=== PATIENT | female | born 1995 | race American Indian/Alaskan Native ===

== ENCOUNTER 2019-06-21 14:44 | Emergency (ER) | payer MEDICAID ==
[2019-06-21 14:59] VITALS: BP 123/78
--- NOTE | 2019-06-21 15:08 | Emergency Department Report ---
ED Dysuria HPI - HPI Chief Complaint: Urogenital-Female Stated Complaint: UTI Time Seen by Provider: 06/21/19 15:02 Location of Discomfort: Urethra (dysuria) Severity: Mild Symptoms: Dysuria: Yes, Frequency: No, Suprapubic Pain: No, Flank Pain: No, Fever: No, Hematuria: No, Abdominal Pain: No, Previous UTI's: No Other History: 23 yo AA female, gravid, comes to er with dysuria and painful vaginal bump. 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 Had appnt today with obgyn but because she was running late they would not see here. . LMP 02/22. no abnormal vag dc. no back pain. no abd pain. no fever or chills. ambulatory and non ill appearing on exam ED Review of Systems ROS: Stated complaint: UTI Other details as noted in HPI Comment: All other systems reviewed and negative ED Past Medical Hx - Past Medical History Previous Medical History?: No - Surgical History Past Surgical History?: Yes Additional Surgical History: left wrist and elbow surgery - Family History Family history: no significant - Social History Smoking Status: Never Smoker Substance Use Type: None - Medications Home Medications: Home Medications Medication Instructions Recorded Confirmed Last Taken Type Nitrofurantoin Frio/M-Cryst 100 mg PO BID #10 capsule 06/21/19 Unknown Rx [Macrobid CAP] Dysuria Exam - Exam General: Vital signs noted. No distress. Alert and acting appropriately. Exam: Yes Moist Mucous Membranes, No CVA Tenderness, No Abdominal Tenderness, No Rigidity or Guarding Exam: vaginal lesion- appears ulcerative without drainage on right labia minora. abd snt. no cva tenderness ED Course Vital Signs 06/21/19 14:54 Temperature 98.9 F Pulse Rate 104 H Respiratory 18 Rate Blood Pressure 123/78 O2 Sat by Pulse 99 Oximetry ED Medical Decision Making - Medical Decision Making Labs 06/21/19 15:00 Urine Color Yellow Urine Turbidity Cloudy Urine pH 5.0 Ur Specific [place] 1.016 Urine Protein <15 mg/dl Urine Glucose (UA) Neg Urine Ketones 80 Urine Blood Neg Urine Nitrite Neg Urine Bilirubin Neg Urine Urobilinogen 2.0 Ur Leukocyte Esterase Lg Urine WBC (Auto) 38.0 H Urine RBC (Auto) 7.0 U Epithel Cells (Auto) 10.0 Urine Bacteria (Auto) 2+ Urine Mucus 1+ Vital Signs 06/21/19 14:54 Temperature 98.9 F Pulse Rate 104 H Respiratory 18 Rate Blood Pressure 123/78 O2 Sat by Pulse 99 Oximetry non ill appearing no fever or chills taking po no abd or back pain no abnormal vag dc ua noted rocephin IM given Will need to see obgyn on Tuesday as scheduled for HSV testing. She verbalizes understanding - Differential Diagnosis ro uti Critical care attestation.: If time is entered above; I have spent that time in minutes in the direct care of this critically ill patient, excluding procedure time. ED Disposition Clinical Impression: , UTI (urinary tract infection), Vaginal sore Disposition: DC TO HOME OR SELFCARE Is pt being admited?: No Does the pt Need Aspirin: No Condition: Stable Additional Instructions: follow up with obgyn on Tuesday as scheduled tylenol for pain safe sex daily over the counter multivitamin med as ordered today Prescriptions: Nitrofurantoin Frio/M-Cryst [Macrobid CAP] 100 mg PO BID #10 capsule Referrals: GARFIELD TINAJERO MD [Staff Physician] - 3-5 Days MARK SAVAGE MD [Staff Physician] - 3-5 Days Time of Disposition: 15:34
[2019-06-21 15:39] LABS: Bacteria,Urine 2+ /HPF (Negative); Bilirubin,Urine NEG (Negative); Blood,Urine NEG (Negative); Color,Urine Yellow (Yellow); Mucus,Urine 1+ /HPF; Protein,Urine <15 mg/dL mg/dL (Negative)
[2019-06-21] MEDS ORDERED: cefTRIAXone/NS 1 GM/50 ML 1 GM/50 ML BAG IV ONE (15:46)
[2019-06-21] MEDS ORDERED: LIDOCAINE-MPF (1%) 10 MG/1 ML VIAL 5 ML INFILTRATI ONE (15:58)
[2019-06-21] MEDS ORDERED: LIDOCAINE-MPF (1%) 10 MG/1 ML VIAL 5 ML ONE (16:00)
== END 2019-06-21 16:16 | disposition home or self-care (01) ==
LOC: ED 14:44
DX: N39.0 Urinary tract infection, site not specified (principal); L98.8 Other specified disorders of the skin and subcutaneous tissue; O26.891 Other specified pregnancy related conditions, first trimester; Z88.2 Allergy status to sulfonamides
CPT/HCPCS: 81001; 87086; 96372; 99283; J0696

== ENCOUNTER 2019-07-12 16:49 | Emergency (ER) | payer MEDICAID ==
[2019-07-12 17:10] VITALS: BP 111/67
[2019-07-12 17:50] LABS: Bilirubin,Urine NEG (Negative); Blood,Urine NEG (Negative); Color,Urine Yellow (Yellow); Mucus,Urine FEW /HPF; Protein,Urine <15 mg/dL mg/dL (Negative); Urobilinogen,Urine < 2.0 mg/dL (<2.0)
--- NOTE | 2019-07-12 18:26 | Emergency Department Report ---
ED Dysuria HPI - HPI Chief Complaint: Urogenital-Female Stated Complaint: BLADDER INFECTION Time Seen by Provider: 07/12/19 17:22 Location of Discomfort: Suprapubic Severity: Mild Symptoms: Dysuria: Yes, Frequency: Yes, Suprapubic Pain: Yes, Flank Pain: No, Fever: No, Hematuria: No, Abdominal Pain: No, Previous UTI's: Yes Other History: 23 yo comes to er with dysuria. no fever or chills. no back pain. no abd pain. no vag bleed or dc. saw ob 2 days ago and cultures pending ED Review of Systems ROS: Stated complaint: BLADDER INFECTION Other details as noted in HPI Comment: All other systems reviewed and negative ED Past Medical Hx - Past Medical History Previous Medical History?: No - Surgical History Past Surgical History?: Yes Additional Surgical History: left wrist and elbow surgery - Family History Family history: no significant - Social History Smoking Status: Never Smoker Substance Use Type: None - Medications Home Medications: Home Medications Medication Instructions Recorded Confirmed Last Taken Type Amoxicillin [Trimox CAP] 500 mg PO BID #20 capsule 07/12/19 Unknown Rx Dysuria Exam - Exam General: Vital signs noted. No distress. Alert and acting appropriately. Exam: No Moist Mucous Membranes, No CVA Tenderness, No Abdominal Tenderness, No Rigidity or Guarding Labs: Lab Results 07/12/19 Range/Units 17:27 Urine Color Yellow (Yellow) Urine Turbidity Clear (Clear) Urine pH 6.0 (5.0-7.0) Ur Specific [place] 1.015 (1.003-1.030) Urine Protein <15 mg/dl (Negative) mg/dL Urine Glucose (UA) Neg (Negative) mg/dL Urine Ketones Neg (Negative) mg/dL Urine Blood Neg (Negative) Urine Nitrite Neg (Negative) Urine Bilirubin Neg (Negative) Urine Urobilinogen < 2.0 (<2.0) mg/dL Ur Leukocyte Esterase Neg (Negative) Urine WBC (Auto) 1.0 (0.0-6.0) /HPF Urine RBC (Auto) 1.0 (0.0-6.0) /HPF U Epithel Cells (Auto) 2.0 (0-13.0) /HPF Urine Mucus Few /HPF ED Course Vital Signs 07/12/19 17:06 Temperature 98.5 F Pulse Rate 105 H Respiratory 18 Rate Blood Pressure 111/67 O2 Sat by Pulse 98 Oximetry ED Medical Decision Making - Medical Decision Making Lab Results 07/12/19 Range/Units 17:27 Urine Color Yellow (Yellow) Urine Turbidity Clear (Clear) Urine pH 6.0 (5.0-7.0) Ur Specific [place] 1.015 (1.003-1.030) Urine Protein <15 mg/dl (Negative) mg/dL Urine Glucose (UA) Neg (Negative) mg/dL Urine Ketones Neg (Negative) mg/dL Urine Blood Neg (Negative) Urine Nitrite Neg (Negative) Urine Bilirubin Neg (Negative) Urine Urobilinogen < 2.0 (<2.0) mg/dL Ur Leukocyte Esterase Neg (Negative) Urine WBC (Auto) 1.0 (0.0-6.0) /HPF Urine RBC (Auto) 1.0 (0.0-6.0) /HPF U Epithel Cells (Auto) 2.0 (0-13.0) /HPF Urine Mucus Few /HPF ua noted recent macrobid x 5 days cultures sent at obgyn 2 days ago classic uti s/s no fever no chills no back pain no abd pain no vag bleed or dc not concerned for sti just finished macrobid allergy to bactrum will use amox-- pt instructed to have obgyn follow culture FHT 150 dc home with rx and ob follow up Vital Signs 07/12/19 17:06 Temperature 98.5 F Pulse Rate 105 H Respiratory 18 Rate Blood Pressure 111/67 O2 Sat by Pulse 98 Oximetry - Differential Diagnosis ro uti Critical care attestation.: If time is entered above; I have spent that time in minutes in the direct care of this critically ill patient, excluding procedure time. ED Disposition Clinical Impression: Dysuria Disposition: DC-01 TO HOME OR SELFCARE Is pt being admited?: No Does the pt Need Aspirin: No Condition: Stable Instructions: Urinary Tract Infection in Women (ED) Prescriptions: Amoxicillin [Trimox CAP] 500 mg PO BID #20 capsule Referrals: GARFIELD TINAJERO MD [Staff Physician] - 3-5 Days Time of Disposition: 18:26
== END 2019-07-12 18:40 | disposition home or self-care (01) ==
LOC: ED 16:49
DX: R30.0 Dysuria (principal); Z98.890 Other specified postprocedural states; Z79.899 Other long term (current) drug therapy; Z88.2 Allergy status to sulfonamides
CPT/HCPCS: 81001; 87086

== ENCOUNTER 2019-10-27 05:26 | Inpatient (IN) | payer MEDICAID ==
[2019-10-27] MEDS ORDERED: MAGNESIUM SULFATE 40GM/1000ML 40 GM/1,000 ML BAG IV ONE (05:40)
[2019-10-27] MEDS ORDERED: LACTATED RINGERS 1,000 ML ONE ×2 (05:40→07:34)
[2019-10-27] MEDS ORDERED: MAGNESIUM SULFATE 4 GM/100 ML BAG IV ONE ×3 (05:41→06:00)
[2019-10-27] MEDS ORDERED: CLINDAMYCIN 600 MG/50 mL 600 MG/50 ML BAG IV ONE (05:43)
[2019-10-27] MEDS ORDERED: BETAMET ACET/BETAMET NA PH 6 MG/ML INJ 5 ML MDV IM ONE (05:45)
[2019-10-27] MEDS ORDERED: LACTATED RINGERS 1,000 ML IV ONE (05:55)
[2019-10-27] MEDS ORDERED: BETAMET ACET/BETAMET NA PH 6 MG/ML INJ 5 ML MDV IM SCH (06:00)
[2019-10-27] MEDS ORDERED: MAGNESIUM SULFATE 40GM/1000ML 40 GM/1,000 ML BAG IV SCH (06:00)
[2019-10-27] MEDS ORDERED: CLINDAMYCIN 600 MG/50 mL 600 MG/50 ML BAG IV SCH (06:00)
[2019-10-27] MEDS ORDERED: MINERAL OIL 30 ML ORAL LIQD PO PRN (06:15)
[2019-10-27] MEDS ORDERED: TERBUTALINE 1 MG/1 ML INJ IVP PRN (06:15)
[2019-10-27] MEDS ORDERED: LIDOCAINE (2%) 20 MG/1 ML VIAL 20 ML MDV INFILTRATI ONE (06:15)
[2019-10-27] MEDS ORDERED: TERBUTALINE 1 MG/1 ML INJ SUB-Q PRN (06:15)
[2019-10-27] MEDS ORDERED: ePHEDrine SULFATE 50 MG/1 ML INJ IV PRN (06:15)
--- NOTE | 2019-10-27 06:20 | History and Physical Report ---
History of Present Illness Date of examination: 10/27/19 Date of admission: 10/27/19 05:41 Chief complaint: labor History of present illness: pt reports care w/ Dr. Lancaster at [facility] denies medical hx reports surgical hx left wrist and elbow hx HSV - on valtrex 2015 - 30wks, vaginal delivery, labor Pt seeing MFM during d/t hx , reports last visit 1 week ago pt was taking 17OHP until 30 weeks, then she stopped because " I was tired of getting them" Cerclage removed last week per patient, because she continued to have ctx and felt a "pulling sensation" Past History Past Medical History: no pertinent history Past Surgical History: other (ortho surgery) MANAGER HEART FAILURE History: herpes. denies: cancer, chlamydia, gonorrhea, hepatitis B, hepati tis C, HIV, syphilis, trichomonas Social history: no significant social history - Obstetrical History Expected Date of Delivery: 12/17/19 Actual Gestation: 32 Week(s) 5 Day(s) : 2 Para: 1 Hx # Term Pregnancies: 0 Number of Pregnancies: 1 Spontaneous Abortions: 0 Induced : 0 Number of Living Children: 1 Medications and Allergies Allergies Allergy/AdvReac Type Severity Reaction Status Date / Time Sulfa (Sulfonamide Allergy Rash Verified 06/21/19 14:54 Antibiotics) Home Medications Medication Instructions Recorded Confirmed Last Taken Type Amoxicillin [Trimox CAP] 500 mg PO BID #20 capsule 07/12/19 Unknown Rx Active Meds: Active Medications Betamethasone Acet/Betameth SodPhos (Celestone Soluspan) 12 mg IM Q24H ABHIJEET Stop: 10/28/19 06:01 Last Admin: 10/27/19 05:46 Dose: 12 mg Documented by: Lactated Ringer's (Lactated Ringers) 1,000 mls @ 999 mls/hr IV BOLUS ONE Stop: 10/27/19 06:55 Magnesium Sulfate (Magnesium Sulfate 40gm/1000ml) 40 gm in 1,000 mls @ 50 mls/hr IV DIRECT ABHIJEET Magnesium Sulfate (Magnesium Sulfate 4gm/100ml) 4 gm in 100 mls @ 300 mls/hr IV ONCE ONE Stop: 10/27/19 06:19 Review of Systems All systems: negative - Vital Signs Vital signs: Vital Signs Pulse Pulse Ox 105 H 100 10/27/19 05:47 10/27/19 05:47 Temp Pulse Resp BP Pulse Ox 120 H 109/53 99 10/27/19 06:12 10/27/19 06:12 10/27/19 06:12 - Physical Exam Breasts: Positive: normal Cardiovascular: Regular rate Lungs: Positive: Clear to auscultation, Normal air movement Abdomen: Positive: normal appearance, soft Genitourinary (Female): Positive: normal external genitalia (no signs of HSV lesions), normal perenium Vulva: both: normal Vagina: Positive: normal moisture Extremities: Positive: normal Deep Tendon Reflex Grade: Normal +2 - Obstetrical FHR: auscultation normal Uterine Contraction Monitor Mode: External Cervical Dilatation: 7 (Breech presentation by u/s) Cervical Effacement Percentage: 90 station: -1 Uterine Contraction Frequency (min): 3 Uterine Contraction Duration: 60 Uterine Contraction Pattern: Regular Uterine Tone Measurement Phase: Contraction Uterine Contraction Intensity: Moderate Results All other labs normal. Assessment and Plan 24y/o @ 32+5wks, labor, 7cms upon arrival. unsure of presentation; breech confirmed by u/s. per patient, cerclage removed last week d/t patient feeling pulling sensation, pt stopped taking 17OHP injections [address] Tuttle made aware, pre-op orders in EMR. Patient being prepped for surgery. pt and s/o made aware, surgery consents signed. - Patient Problems (1) 32 weeks gestation of Current Visit: Yes Status: Acute Plan to address problem: steroids (2) labor in third trimester Current Visit: Yes Status: Acute Qualifiers: Fetus number: single or unspecified fetus (3) GBS screening not performed Current Visit: Yes Status: Acute Plan to address problem: cleocin q8hrs until delivery (4) Malpresentation of fetus Current Visit: Yes Status: Acute
[2019-10-27] MEDS ORDERED: TERBUTALINE 1 MG/1 ML INJ ONE (06:27)
[2019-10-27] MEDS ORDERED: EMLA CREAM 5 GM TP PRN (06:29)
[2019-10-27] MEDS ORDERED: METOCLOPRAMIDE 10 MG/2 ML INJ IV ONE (06:29)
[2019-10-27] MEDS ORDERED: FAMOTIDINE 20 MG/2 ML INJ IV ONE (06:29)
[2019-10-27] MEDS ORDERED: BICITRA ORAL LIQD 30ML PO ONE (06:29)
[2019-10-27] MEDS ORDERED: BUPIVACAINE-EPINEPHRINE/PF 0.25%-1:200,000 (30 ML) VIAL INFILTRATI ONE (06:55)
[2019-10-27] MEDS ORDERED: OXYTOCIN DRIP 30 UNITS/500 ML BAG IV SCH (07:00)
[2019-10-27] MEDS ORDERED: LACTATED RINGERS 1,000 ML IV SCH (07:00)
[2019-10-27] MEDS ORDERED: OXYTOCIN 20 UNIT/1000ML DRIP 20 UNITS/1,000 ML BAG IV SCH ×2 (07:00→09:00)
--- NOTE | 2019-10-27 07:02 | Anesthesia Day of Surgery ---
Anesthesia Day of Surgery - Day of Surgery Patient Examined: Yes Patient H&P Reviewed: Yes Patient is NPO: Yes Beta Blockers: No Cardiac Clearance: No Pulmonary Clearance: No Sai's Test: N/A
[2019-10-27] MEDS ORDERED: DEXMEDETOMIDINE 200 MCG/2 ML VIAL IV ONE (07:11)
[2019-10-27] MEDS ORDERED: SODIUM CHLORIDE 0.9% IRR 1,500 ML BOTTLE IR ONE (07:16)
[2019-10-27] MEDS ORDERED: WATER FOR IRRIG STERILE 1,500 ML BOTTLE IR ONE (07:16)
--- NOTE | 2019-10-27 07:25 | Ultrasound Report ---
Examination: Ultrasound Obstetrical Limited, 10/27/2019 INDICATION: Limited study performed to evaluate presentation. COMPARISON: None FINDINGS: There is a single living intrauterine in the breech position. The heart rate is 162 beats per minute. IMPRESSION: Limited obstetrical ultrasound with details as above. Signer Name: Teri Love MD Signed: 10/27/2019 7:20 AM Workstation Name: [id number]
[2019-10-27 07:28] LABS: Hematocrit 33.8 % (30.3-42.9); Hemoglobin 11.3 gm/dl (10.1-14.3); Mean Corpuscular HGB Conc 34 % (30-34); Mean Corpuscular Volume 87 fl (79-97); Platelet Count 204 K/mm3 (140-440); Red Blood Count 3.87 M/mm3 (3.65-5.03); Red Cell Distribution Width 14.4 % (13.2-15.2)
[2019-10-27] MEDS ORDERED: GENTAMICIN/NS 80 MG/100 ML 100 ML IV ONE (07:32)
[2019-10-27] MEDS ORDERED: KETOROLAC 30 MG/1 ML INJ ONE (07:45)
[2019-10-27] MEDS ORDERED: PHENYLEPHRINE/NS 1,000 MCG/10 ML SYRINGE (OR USE) IV ONE (07:45)
[2019-10-27] MEDS ORDERED: BUPIVACAINE /DEX-WATER 0.75% (2 ML) AMPULE INFILTRATI ONE (07:46)
[2019-10-27] MEDS ORDERED: MIDAZOLAM 2 MG/2 ML INJ ONE ×2 (07:53)
[2019-10-27 08:16] LABS: Anisocytosis 1+; Basophils % (Manual) 0 % (0.0-1.8); Eosinophils % (Manual) 0 % (0.0-4.3); Giant Platelets Rare; Large Platelets Few; Total Cells Counted 100
[2019-10-27] MEDS ORDERED: LANOLIN/ZINC/DIMETHICONE (LANSINOH) 7 GM TP PRN (08:16)
[2019-10-27] MEDS ORDERED: WITCH HAZEL/ GLYCERIN PAD TP PRN (08:16)
[2019-10-27] MEDS ORDERED: NALOXONE 0.4 MG/1 ML INJ IV PRN ×2 (08:16→08:39)
[2019-10-27 08:17] LABS: Platelet Estimate Cons
--- NOTE | 2019-10-27 08:21 | Operative Report ---
Operative Report Operative Report: Date of procedure: 10/27/2019 Pre-operative diagnosis: 32 weeks gestation labor breech presentation Previous delivery at 32 weeks Post-operative diagnosis: Same plus nuchal cord x1 Procedure name(s): Primary low transverse section via Pfannenstiel skin incision Surgeon: Dr. Tuttle Sr. Social Media & Mobile Manager: JAY Anesthesia: Spinal EBL: 800 mL Urine output: 350 mL of clear urine out at end of the procedure Fluids: 2900 mL Findings: Liveborn female infant in footling breech presentation weight 4 pounds 5 ounces Apgars of 6 and 7 at 1 and 5 minutes Grossly normal fallopian tubes and ovaries bilaterally Normal uterus Indications: Patient presents in active labor found to be approximately 7 cm dilated with footling breech presentation. Patient was consented for section. All questions were addressed and answered. Consents were signed and placed on the chart. Procedure: Patient was taking to the operating room. Patient was then prepped and draped in sterile fashion after anesthesia was found to be adequate. A low transverse skin incision was made with the scalpel and carried down to the underlying layer of fascia with the Bovie. The fascia was then incised in the midline and this incision was extended bilaterally with the Bovie. The superior aspect of the fascia was grasped with Elzbieta clamps tented upward and dissected off of the anterior rectus muscles with the scalpel. In similar fashion the inferior aspect of the fascia was grasped with Elzbieta clamps tented upward and dissected off of the anterior rectus muscles. The rectus muscles were then bluntly divided in the midline. The peritoneum was identified and entered into bluntly. The Vinny retractor was placed the bladder blade was placed. The bladder flap was created using the Metzenbaum scissors. The bladder blade was replaced. A lower transverse uterine incision was made with the scalpel and extended bilaterally with the bandage with blunt dissection. Artificial rupture of membranes was performed yielding [clear amniotic fluid]. Infant was noted to be in footling breech presentation. was delivered via normal breech extraction.. Nuchal cord x1 was noted and easily reduced upon delivery of the infant. There was delayed clamping of the umbilical cord. The umbilical cord was clamped x2. The cord was cut. The infant was then placed in sterile bassinet. [The cord blood was collected.] The placenta was manually extracted in its entirety. The uterus was exteriorized and cleared of all clots and debris. The uterine incision was closed using 0 Vicryl in a running locking fashion. A second imbricating layer of the same suture was then created. The posterior cul-de-sac was copiously irrigated. The uterus was returned to the abdomen. The gutters were also irrigated. The anterior rectus muscles were reapproximated using 3-0 Vicryl. The anterior rectus fascia was reapproximated using 0 Vicryl in a running fashion. The subcuticular fat was reapproximated using 2-0 Vicryl in a running fashion. The skin was reapproximated with 4-0 Monocryl in a subcuticular stitch. The patient tolerated the procedure well. Sponge lap and needle counts were all correct x3. Patient was taken to the recovery room awake and in stable condition.
[2019-10-27] MEDS ORDERED: HYDROmorphone 1 MG/1 ML INJ IV PRN (08:39)
[2019-10-27] MEDS ORDERED: ONDANSETRON 4 MG/2 ML INJ IV PRN (08:39)
[2019-10-27] MEDS ORDERED: D5W/LACTATED RINGERS 1,000 ML IV SCH (09:00)
[2019-10-27] MEDS: KETOROLAC 30 MG/1 ML INJ IV PRN ×2 (14:40→21:45)
[2019-10-27] MEDS: CLINDAMYCIN 600 MG/50 mL 600 MG/50 ML BAG IV SCH ×2 (14:57→21:45)
[2019-10-27 18:59] LABS: Amphetamine Screen,Urine Negative; Cannabinoid Screen,Urine Negative; Cocaine Screen,Urine Negative; Methadone Screen,Urine Negative; Opiate Screen,Urine Negative
[2019-10-27 19:17] LABS: Benzodiazepines Screen,Urine Positive
[2019-10-27 23:46] LABS: Hematocrit 31.4 % (30.3-42.9); Hemoglobin 10.3 gm/dl (10.1-14.3)
[2019-10-28] MEDS: KETOROLAC 30 MG/1 ML INJ IV PRN (04:42)
[2019-10-28] MEDS: HYDROcodone/ACETAMINOPHEN 5-325 MG TAB PO PRN ×2 (05:58→18:28)
[2019-10-28] MEDS ORDERED: IBUPROFEN 800 MG TAB PO PRN (06:00)
--- NOTE | 2019-10-28 08:59 | Progress Note ---
Assessment and Plan - Patient Problems (1) delivery delivered Current Visit: Yes Status: Acute Plan to address problem: Postoperative day #1. Patient without nausea vomiting. Patient tolerating advancing diet well Patient without fever. Will ambulate in halls. We will continue routine postoperative care. is doing well. Will continue routine post operative care. Patient's postoperative hematocrit is 34.1% Subjective - Subjective Date of service: 10/28/19 Patient reports: appetite normal, voiding normally, pain well controlled, flatus Objective - Vital Signs Latest vital signs: Vital Signs Temp Pulse Resp BP BP Pulse Ox 10/28/19 06:58 18 10/28/19 05:58 18 10/28/19 05:12 18 10/28/19 04:42 18 10/28/19 04:40 98.2 F 87 20 102/67 97 10/27/19 23:56 98.0 F 94 H 20 112/72 96 10/27/19 22:15 18 10/27/19 21:45 18 10/27/19 21:27 98.6 F 100 H 20 104/73 99 10/27/19 16:14 98.5 F 95 H 20 117/71 94 10/27/19 10:15 98.5 F 101 H 18 116/68 98 10/27/19 09:43 98.7 F 106 H 18 109/59 100 10/27/19 09:30 100 H 19 103/58 100 10/27/19 09:15 104 H 20 105/56 100 10/27/19 09:00 108 H 18 99/51 100 Intake and Output 10/27/19 10/28/19 10/28/19 22:59 06:59 14:59 Intake Total 170 720 Output Total 800 1200 Balance -630 -480 Intake: IV 50 CLEOCIN 600 MG/50 mL 600 50 mg In 50 ml @ 100 mls/hr IV Q8H [facility] Rx#:[id number] Oral 120 720 Output: Urine 800 1200 Indwelling Catheter 800 400 Void 800 Other: Total, Intake Amount 120 240 Total, Output Amount 400 200 - Exam Breasts: Present: deferred Lungs: Present: Normal air movement Abdomen: Present: normal appearance Uterus: Present: firm Incision: Present: dressed
[2019-10-29] MEDS: HYDROcodone/ACETAMINOPHEN 5-325 MG TAB PO PRN ×2 (05:37→12:17)
--- NOTE | 2019-10-29 08:18 | Discharge Summary ---
Providers - Providers Date of Admission: 10/27/19 05:41 Date of discharge: 10/29/19 (Pt stable for discharge home.) Attending physician: WINTER DAVID 10/29/19 07:42 Consult to Case Management [CONS] Routine Services Needed at Discharge: Sanitizer Notified:: No Phone number called:: [phone] Was contact made?: No Additional Physician Instructions: UDS + for benzodiazepines Primary care physician: WINTER DAVID Hospitalization Reason for admission: labor Delivery: Procedure: primary low transverse Episiotomy: none Laceration: none Incision: normal, dry, intact (Steri strips intact. No drainage or s/sx of inf ection noted. ) Other procedures: none complications: none Discharge diagnosis: delivery baby: female Pertinent studies: Pt with positive UDS on admission for benzodiazepines. Awaiting case management consult prior to discharge. RN aware and will contact case management today. Hospital course: S: Pt doing well. States pain well controlled with pain medications. Ambulating, voiding, and passing flatus without difficulty. BC: Pills. O: VSS. Adequate I&O's. Fundus firm, minimal bleeding noted. Incision open to air, steri-stips intact. No drainage or s/sx of infection noted. H/H 10.3/31.4. A: 24 y.o. walk in pt @ 32 + wks, primary for labor and footling breech presentation, stable for discharge home. P: Discharge home with instructions. Schedule an incision check in 1 week. Schedule a visit in 4 weeks. Awaiting case management consult before discharge home. RN taking care of patient aware. Condition at discharge: Good Disposition: DC-01 TO HOME OR SELFCARE Plan - Discharge Medications Prescriptions: Ibuprofen [Motrin 800 MG tab] 800 mg PO Q8HR PRN #30 tablet PRN Reason: Pain, Moderate (4-6) oxyCODONE /ACETAMINOPHEN [Percocet 5/325] 1 tab PO Q4HR #30 tab - Provider Discharge Summary Activity: routine, no sex for 6 weeks, no heavy lifting 4 weeks, no strenuous exercise Diet: routine Instructions: routine Additional instructions: [] Smoking cessation referral if applicable(refer to patient education folder for contact #) [] Refer to [facility] Booklet Call your doctor immediately for: * Fever > 100.5 * Heavy vaginal bleeding ( >1 pad per hour) * Severe persistent headache * Shortness of breath * Reddened, hot, painful area to leg or breast * Drainage or odor from incision. * Keep incision clean and dry at all times and follow doctor's instructions regarding bathing/showering - Follow up plan Follow up: WINTER DAVID MD [Primary Care Provider] - 7 Days (Congratulations!!! Please schedule a incision check in the office in one week. The number and address to the office has been provided for you. Please schedule a visit in 4 weeks. Please take all medications as prescribed. If you have any questions or concerns, please do not hesitate to call the office at [phone]. Office Address and Phone Number: [address] [facility] [address] [facility], [address] )
[2019-10-29 15:48] VITALS: BP 126/78
== END 2019-10-29 16:00 | disposition home or self-care (01) | DRG 765 ==
LOC: TRG 05:26 → LD 05:41 → OB 10:00
PROVIDERS: ADMIT Obstetrics & Gynecology; ATTEND Obstetrics & Gynecology
PROC: 10D00Z1 Extraction of Products of Conception, Low, Open Approach (ICD-10-PCS; principal; 2019-10-27)
DX: O32.8XX0 Maternal care for other malpresentation of fetus, not applicable or unspecified (principal); O60.14X0 Preterm labor third trimester with preterm delivery third trimester, not applicable or unspecified; O69.81X0 Labor and delivery complicated by cord around neck, without compression, not applicable or unspecified; Z88.2 Allergy status to sulfonamides; Z37.0 Single live birth; Z3A.32 32 weeks gestation of pregnancy
CPT/HCPCS: 36415; 76815; 80307; 85007; 85014; 85018; 85025; 86592; 86706; 86762; 86850; 86900; 86901; 87806; 88307; G0378; A6250; J0702; J1580; J1885; J2250; J2370; J2590; J2765; J3105; J3475; J3490; J7120; J7121

== ENCOUNTER → 2020-01-03 17:16 | Emergency (ER) | payer MEDICAID | END | disposition left against medical advice (07) | LOC: ED 17:16 | DX: R10.9 Unspecified abdominal pain (principal); Z53.21 Procedure and treatment not carried out due to patient leaving prior to being seen by health care provider ==